=== PATIENT | male | born 1985 | race Two or more races ===

== ENCOUNTER 2017-07-30 21:27 | Emergency (ER) | payer SELFPAY ==
[~2017-07-30] VITALS: Ht 167.6 cm; Wt 72.6 kg
[2017-07-30] MEDS ORDERED: Sodium Chloride 500ML 500 ML IV ONE (21:38)
[2017-07-30] MEDS ORDERED: Morphine Sulfate 4mg/ml Inj IVP ONE ×2 (21:45→22:15)
[2017-07-30 21:48] VITALS: BP 142/92
[2017-07-30 21:55] LABS: MEAN CORPUSCULAR VOLUME 92 FL (80-99); PLATELET COUNT 265 K/UL (150-450); RED BLOOD COUNT 4.98 M/UL (4.70-6.10); RED CELL DISTRIBUTION WIDTH 10.7 % (11.6-14.8)
[2017-07-30 21:59] LABS: BASOPHILS % (AUTO) 0.8 % (0.0-2.0); EOSINOPHILS % (AUTO) 0.6 % (0.0-3.0); LYMPHOCYTES % (AUTO) 9.8 % (20.0-45.0); MONOCYTES % (AUTO) 3.6 % (1.0-10.0); NEUTROPHILS % (AUTO) 85.3 % (45.0-75.0)
[2017-07-30 22:04] LABS: ANION GAP 5 mmol/L (5-15); BLOOD UREA NITROGEN 10 mg/dL (7-18); CALCIUM 8.9 MG/DL (8.5-10.1); CARBON DIOXIDE 32 MMOL/L (21-32); CHLORIDE 103 MMOL/L (98-107); CREATININE 1.1 MG/DL (0.55-1.30); POTASSIUM 3.6 MMOL/L (3.5-5.1); SODIUM 140 MMOL/L (136-145)
[2017-07-30 22:09] LABS: ALANINE AMINOTRANSFERASE 29 U/L (12-78); ALBUMIN 4.2 G/DL (3.4-5.0); ALBUMIN/GLOBULIN RATIO 1.4 (1.0-2.7); ALKALINE PHOSPHATASE 97 U/L (46-116); ASPARTATE AMINO TRANSFERASE 19 U/L (15-37); BILIRUBIN,TOTAL 0.4 MG/DL (0.2-1.0); CREATINE KINASE 117 U/L (26-308)
[2017-07-30 22:10] LABS: INR 0.9 (0.9-1.1)
[2017-07-30 22:48] VITALS: BP 128/83
[2017-07-30 22:59] LABS: APPEARANCE,URINE CLEAR; BILIRUBIN, URINE NEGATIVE (NEGATIVE); GLUCOSE, URINE (UA) NEGATIVE (NEGATIVE); KETONES,URINE 1+ (NEGATIVE); LEUKOCYTE ESTERASE ,URINE NEGATIVE (NEGATIVE); NITRITE,URINE NEGATIVE (NEGATIVE); PH,URINE 8 (4.5-8.0); PROTEIN,URINE NEGATIVE (NEGATIVE); UROBILINOGEN,URINE NORMAL MG/DL (0.0-1.0)
[2017-07-30 23:00] LABS: COLOR,URINE YELLOW
[2017-07-30] MEDS ORDERED: DiphenhydrAMINE 50mg/ml Inj IVP ONE (23:00)
[2017-07-30] MEDS ORDERED: Metoclopramide 10mg/2ml Inj IVP ONE (23:00)
[2017-07-30 23:48] VITALS: BP 112/83
[2017-07-31 00:48] VITALS: BP 101/50
[2017-07-31 02:48] VITALS: BP 118/62
[2017-07-31 04:48] VITALS: BP 122/61
--- NOTE | 2017-07-31 06:22 | Emergency Room Report ---
History of Present Illness General Chief Complaint: Abdominal Pain Source: Patient Present Illness HPI Patient presents with severe epigastric pain and vomiting. Allergies: Coded Allergies: No Known Allergies (Unverified , 07/30/17) Nursing Documentation-[facility] Past Medical History: No History, Except For Hx Gastrointestinal Problems: Yes - stomach ulcer Physical Exam Vital Signs Date Time Temp Pulse Resp B/P (MAP) Pulse Ox O2 Delivery O2 Flow Rate FiO2 07/30/17 21:33 98.2 73 22 142/92 100 98.2 07/30/17 21:48 Room Air Medical Decision Making Diagnostic Impression: Primary Impression: Abdominal pain Additional Impressions: Gastritis Nausea & vomiting Laboratory Tests Test 07/30/17 21:40 07/30/17 22:40 White Blood Count 16.0 K/UL (4.8-10.8) H Red Blood Count 4.98 M/UL (4.70-6.10) Hemoglobin 16.0 G/DL (14.2-18.0) Hematocrit 46.0 % (42.0-52.0) Mean Corpuscular Volume 92 FL (80-99) Mean Corpuscular Hemoglobin 32.0 PG (27.0-31.0) H Mean Corpuscular Hemoglobin Concent 34.7 G/DL (32.0-36.0) Red Cell Distribution Width 10.7 % (11.6-14.8) L Platelet Count 265 K/UL (150-450) Mean Platelet Volume 5.8 FL (6.5-10.1) L Neutrophils (%) (Auto) 85.3 % (45.0-75.0) H Lymphocytes (%) (Auto) 9.8 % (20.0-45.0) L Monocytes (%) (Auto) 3.6 % (1.0-10.0) Eosinophils (%) (Auto) 0.6 % (0.0-3.0) Basophils (%) (Auto) 0.8 % (0.0-2.0) Prothrombin Time 9.9 SEC (9.30-11.50) Prothrombin Time INR 0.9 (0.9-1.1) PTT 23 SEC (23-33) Sodium Level 140 MMOL/L (136-145) Potassium Level 3.6 MMOL/L (3.5-5.1) Chloride Level 103 MMOL/L (98-107) Carbon Dioxide Level 32 MMOL/L (21-32) Anion Gap 5 mmol/L (5-15) Blood Urea Nitrogen 10 mg/dL (7-18) Creatinine 1.1 MG/DL (0.55-1.30) Estimate Glomerular Filtration Rate > 60 mL/min (>60) Glucose Level 124 MG/DL (74-106) H Calcium Level 8.9 MG/DL (8.5-10.1) Total Bilirubin 0.4 MG/DL (0.2-1.0) Aspartate Amino Transferase (AST) 19 U/L (15-37) Alanine Aminotransferase (ALT) 29 U/L (12-78) Alkaline Phosphatase 97 U/L (46-116) Total Creatine Kinase 117 U/L (26-308) Total Protein 7.3 G/DL (6.4-8.2) Albumin 4.2 G/DL (3.4-5.0) Globulin 3.1 g/dL Albumin/Globulin Ratio 1.4 (1.0-2.7) Lipase 128 U/L (73-393) Urine Color Yellow Urine Appearance Clear Urine pH 8 (4.5-8.0) Urine Specific Viper 1.010 (1.005-1.035) Urine Protein Negative (NEGATIVE) Urine Glucose (UA) Negative (NEGATIVE) Urine Ketones 1+ (NEGATIVE) H Urine Occult Blood Negative (NEGATIVE) Urine Nitrite Negative (NEGATIVE) Urine Bilirubin Negative (NEGATIVE) Urine Urobilinogen Normal MG/DL (0.0-1.0) Urine Leukocyte Esterase Negative (NEGATIVE) EKG Diagnostic Results Rate: normal Rhythm: NSR ST Segments: no acute changes - peaked T waves Rhythm Strip Diag. Results EP Interpretation: yes Rhythm: NSR, no PVC's, no ectopy Chest X-Ray Diagnostic Results Chest X-Ray Diagnostic Results : Chest X-Ray Ordered: Yes # of Views/Limited/Complete: 1 View Indication: Other Interpretation: no consolidation, no effusion, no pneumothorax Impression: No acute disease Electronically Signed by: Electronically signed by Raul Jenkins MD Other X-Ray Diagnostic Results Other X-Ray Diagnostic Results : X-Ray ordered: abd # of Views/Limited Vs Complete: 1 View Indication: Pain Interpretation: nonspecific bowel gas, no sbo, other - Paucity gas Impression: Other Electronically Signed by: Electronically signed by Raul Jenkins MD Last Vital Signs Date Time Temp Pulse Resp B/P (MAP) Pulse Ox O2 Delivery O2 Flow Rate FiO2 07/31/17 06:30 97.8 71 16 113/65 100 Room Air 97.8 Status: improved Disposition: HOME, SELF-CARE Condition: Improved Scripts Ondansetron Odt* (ZOFRAN ODT*) 4 Mg Tab.rapdis 4 MG BC EVERY 8 HOURS PRN for nausea/vomiting, #10 TAB 1 Refill Prov: Raul Jenkins M.D. 07/31/17 Tramadol Hcl* (ULTRAM*) 50 Mg Tablet 50 MG ORAL Q6H PRN for For Pain, #10 TAB 0 Refills Prov: Raul Jenkins M.D. 07/31/17 Mag Hydrox/Al Hydrox/Simeth (MAALOX MAXIMUM STRENGTH SUSP) 355 Ml Oral.susp 30 ML PO Q6HR PRN for acid indigestion, #240 ML Prov: Raul Jenkins M.D. 07/31/17 Omeprazole (OMEPRAZOLE) 20 Mg Capsule.dr 20 MG ORAL DAILY, #30 CAP Prov: Raul Jenkins M.D. 07/31/17 Referrals: NOT CHOSEN JOEL/,REFERRING (PCP) Raul Jenkins M.D. Jul 31, 2017 06:22
[2017-07-31 06:25] VITALS: BP 113/65
[2017-07-31] MEDS ORDERED: TRAMADOL HCL50 MG ORAL (06:26)
[2017-07-31] MEDS ORDERED: MAALOX MAXIMUM355 M1 PO (06:26)
[2017-07-31] MEDS ORDERED: ONDANSETRON ODT4 MG BC (06:26)
[2017-07-31] MEDS ORDERED: OMEPRAZOLE20 M2 ORAL (06:26)
[2017-07-31 06:30] VITALS: BP 113/65
--- NOTE | 2017-07-31 10:32 | Diagnostic Imaging Report ---
Indication: Chest pain Technique: One view of the chest Comparison: none Findings: Lungs and pleural spaces are clear. Heart size is normal Impression: No acute process
--- NOTE | 2017-07-31 10:33 | Diagnostic Imaging Report ---
Indication: Abdominal pain Technique: Supine view of the abdomen Comparison: none Findings: Bowel gas pattern is unremarkable. No gaseous distention of large or small bowel. No unusual masses or calcifications Impression: Negative
== END 2017-07-31 06:30 | disposition home or self-care (01) ==
LOC: EMR 21:46
DX: K29.70 Gastritis, unspecified, without bleeding (principal); R11.2 Nausea with vomiting, unspecified
CPT/HCPCS: 36415; 71045; 74018; 80053; 81003; 82550; 83690; 85025; 85610; 85730; 93005; 96360; 96374; 96375; 99284; J1200; J2270; J2405; J2765; J7040; S0028